=== PATIENT | male | born 1940 | race Caucasian/White ===

== ENCOUNTER 2016-08-04 04:10 | Inpatient (IN) ==
[2016-07-28 12:53] LABS: MANUAL DIFF NEEDED? NO
[2016-07-28 12:53] LABS: URINE MICRO REVIEW NEEDED? NO; URINE SOURCE CLEAN CATCH
--- NOTE | 2016-07-28 13:04 | EKG Report ---
Test Performed on : 07/28/2016 12:26:50 PM Test Reason : PAT Blood Pressure : / mmHG Vent. Rate : 085 BPM Atrial Rate : 085 BPM P-R Int : 226 ms QRS Dur : 096 ms QT Int : 368 ms P-R-T Axes : 044 032 088 degrees QTc Int : 437 ms Atrial-paced rhythm with prolonged AV conduction Nonspecific T wave abnormality Abnormal ECG No previous ECGs available Confirmed by Rock RAVI, Jaya Ramires ([id number]) on 07/30/2016 9:12:54 AM
[2016-07-28 13:33] LABS: BILIRUBIN URINE NEGATIVE (NEGATIVE); BLOOD URINE NEGATIVE (NEGATIVE); COLOR YELLOW; GLUCOSE URINE NEGATIVE (NEGATIVE); LEUKOCYTES URINE NEGATIVE (NEGATIVE); NITRITE URINE NEGATIVE (NEGATIVE); PROTEIN URINE NEGATIVE (NEGATIVE); SP GRAVITY URINE 1.017; TURBIDITY URINE CLEAR (CLEAR); UROBILINOGEN URINE NORMAL (NORMAL)
[2016-07-28 13:33] LABS: BASO% 0.4 % (0.0-0.8); EOS# 0.11 X1000 (0.0-0.7); EOS% 1.1 % (0.0-10.0); HEMATOCRIT 41.3 % (42.0-52.0); HEMOGLOBIN 13.7 g/dL (14.0-18.0); IMM GRAN# 0.07 X1000 (0.0-0.04); IMM GRAN% 0.7 % (0.0-0.5); LYMPH# 2.57 X1000 (1.2-3.4); LYMPH% 26.5 % (20.5-51.1); MCH 32.5 PG (27-31); MCHC 33.2 g/dL (33-37); MCV 97.9 FL (81-99); MONO# 0.97 X1000 (0.11-0.59); MPV 10.5 FL (7.4-10.4); NEUT% 61.3 % (42.2-75.2); PLT 195 X1000 (130-400); RBC 4.22 XMIL (4.7-6.1)
[2016-07-28 13:36] LABS: UR EPITHELIAL CELLS <10 /HPF (<10); URINE BACTERIA NEGATIVE /HPF; URINE RBC <10 /HPF (<10); URINE WBC <10 /HPF (<10)
[2016-07-28 13:40] LABS: INR 0.98; PROTIME 10.3 Seconds (9.2-11.7); PTT 32.9 Seconds (22.0-36.0)
[2016-07-28 14:01] LABS: AGAP 11; BUN 19 mg/dL (8-22); CALCIUM 9.3 mg/dL (8.8-10.2); CHLORIDE 98 mmol/L (98-107); COSMO 281; POTASSIUM 4.4 mmol/L (3.5-5.1); SODIUM 137 mmol/L (136-145); TCO2 28 mmol/L (25-35)
[2016-08-04] MEDS ORDERED: LYRICA ONE (05:56)
[2016-08-04] MEDS ORDERED: REGLAN ONE (05:56)
[2016-08-04] MEDS ORDERED: PEPCID ONE (05:56)
[2016-08-04] MEDS ORDERED: KEFZOL 2 GM/D5W 2 GM/50 ML IVPB ONE (05:57)
[2016-08-04] MEDS ORDERED: CELEBREX ONE (05:57)
[2016-08-04] MEDS ORDERED: LR 1,000 ML ONE (05:57)
[2016-08-04] MEDS ORDERED: COLACE ONE (05:58)
[2016-08-04] MEDS ORDERED: TORADOL ONE (06:42)
[2016-08-04] MEDS ORDERED: MARCAINE 0.25% PF/EPI 1:200,000 ONE (06:42)
[2016-08-04] MEDS ORDERED: NEOSPORIN G.U. IRRIGANT ONE (06:43)
[2016-08-04] MEDS ORDERED: XYLOCAINE-MPF 2% ONE (06:43)
[2016-08-04] MEDS ORDERED: SODIUM CHLORIDE 0.9% ONE (06:43)
[2016-08-04] MEDS ORDERED: CYKLOKAPRON 1,000 MG/NS 1,000 MG/100 ML IVPB ONE (06:43)
[2016-08-04] MEDS ORDERED: EXPAREL 1.3% ONE (06:43)
[2016-08-04] MEDS ORDERED: ROBINUL ONE (06:50)
[2016-08-04] MEDS ORDERED: NEO-SYNEPHRINE ONE (07:01)
[2016-08-04] MEDS ORDERED: OFIRMEV 1000 MG/ISOTONIC SOLN 1,000 MG/100 ML BOTTLE ONE (08:08)
[2016-08-04] MEDS ORDERED: DECADRON ONE (08:30)
[2016-08-04 08:38] LABS: URINE MICRO REVIEW NEEDED? NO; URINE SOURCE CATH
[2016-08-04 08:44] LABS: BILIRUBIN URINE NEGATIVE (NEGATIVE); BLOOD URINE NEGATIVE (NEGATIVE); COLOR YELLOW; GLUCOSE URINE NEGATIVE (NEGATIVE); LEUKOCYTES URINE NEGATIVE (NEGATIVE); NITRITE URINE NEGATIVE (NEGATIVE); PH URINE 5.5; PROTEIN URINE TRACE mg/dL (NEGATIVE); SP GRAVITY URINE 1.028; TURBIDITY URINE CLEAR (CLEAR); UR EPITHELIAL CELLS <10 /HPF (<10); URINE BACTERIA NEGATIVE /HPF; URINE RBC <10 /HPF (<10); URINE WBC <10 /HPF (<10); UROBILINOGEN URINE NORMAL (NORMAL)
[2016-08-04] MEDS ORDERED: VERSED ONE (10:24)
[2016-08-04] MEDS ORDERED: DIPRIVAN 1% ONE ×2 (10:25→10:57)
[2016-08-04] MEDS ORDERED: FENTANYL ONE (10:57)
[2016-08-04] MEDS ORDERED: NS 1,000 ML ONE (10:58)
[2016-08-04] MEDS ORDERED: OXY IR PO PRN (11:50)
[2016-08-04] MEDS ORDERED: MORPHINE IV PRN (11:50)
[2016-08-04] MEDS ORDERED: ZOFRAN IV PRN (11:50)
[2016-08-04] MEDS ORDERED: MILK OF MAGNESIA PO PRN (11:51)
[2016-08-04] MEDS ORDERED: AMBIEN PO PRN (11:51)
[2016-08-04] MEDS ORDERED: CYKLOKAPRON 1,000 MG in NS 100 ML IV ONE (14:00)
[2016-08-04] MEDS: ULTRAM PO SCH ×3 (14:14→23:56)
[2016-08-04] MEDS: TYLENOL PO SCH ×2 (14:21→20:18)
[2016-08-04] MEDS: NS 1,000 ML IV SCH (14:22)
--- NOTE | 2016-08-04 15:39 | OPERATIVE NOTE ---
PROCEDURE DATE: 08/04/2016 PREOPERATIVE DIAGNOSIS: Right hip degenerative joint disease. POSTOPERATIVE DIAGNOSIS: Right hip degenerative joint disease. PROCEDURE PERFORMED: Right anterior total hip arthroplasty using a [employer] orthopedic size 12 femoral stem, a +0 36 mm head, a 58 mm hemispherical shell, and 36 mm acetabular inside diameter liner. ANESTHESIA: General. SURGEON: Dr. Nato Delgadillo. VULNERABILITY ASSESSMENT ANALYST: Janet. COMPLICATIONS: None. BLOOD LOSS: Minimal. DRAINS: Hemovac x1. DESCRIPTION OF PROCEDURE: The patient brought to operative suite and placed in supine position. After successful administration of general anesthesia, the patient was placed on the OSI table in the usual position for right hip. The right hip was then prepped and draped in the usual sterile fashion. A longitudinal incision was made beginning 2 cm distal and 2 cm lateral to the anterior superior iliac spine and extended slightly laterally 8 cm. It was dissected sharply through skin and subcutaneous tissue, down to the tensor fascia. The tensor fascia was incised and dissected bluntly down to deep tensor fascia. The deep tensor fascia was incised. The circumflex vessels were electrocauterized. The rectus was elevated off the capsule exposing the anterior capsule. A T-capsulotomy was performed, exposing the femoral neck. A femoral neck cut was made with oscillating saw. The femoral head was removed with the power corkscrew. The labrum was resected. The acetabulum was serially reamed to a 58 to accept a 58 cup. A 58 cup was then driven into place in the proper amount inclination and anteversion. Then the liner was locked onto the cup. Attention was directed to the femur. It was externally rotated, extended, adducted, and elevated out of the wound with the hook on the OSI bed. The lateral neck was rongeured. The canal was serially broached to a size 12. A size 12 high offset 0 neck length was trialed and found be excellent leg length, offset, and stability of the hip. The trial was removed. Definitive stem was seated on the femur, and the head was seated on the Ibanez taper and the hip was reduced. Hip was again copiously irrigated and dried, being certain all bone debris was removed. X-rays showed it again to be in excellent position. The hip was copiously infiltrated with Exparel, including posterior capsule, anterior capsule, anterior musculature, and subcutaneous tissue and 0 V-Loc was used to close the anterior capsule and a drain was placed deep to the tensor fascia and buried around the stem neck, and then the tensor fascia was closed with running 0 V-Loc as well. Skin edge approximated with 2-0 Vicryl. Skin was closed with 4-0 Monocryl and then Prineo. The patient tolerated the procedure well without complication. At the end the procedure, all counts were correct. The patient was transferred to the recovery room in stable condition. cc: Nato Delgadillo MD
[2016-08-04] MEDS: KEFZOL 2 GM/D5W 2 GM/50 ML IVPB IV SCH ×2 (16:31→23:01)
[2016-08-04] MEDS: PERIDEX MT SCH (20:18)
[2016-08-04] MEDS: LYRICA PO SCH (20:18)
[2016-08-04] MEDS: COLACE PO SCH (20:18)
[2016-08-05] MEDS: TYLENOL PO SCH ×2 (02:34→08:55)
[2016-08-05] MEDS: NS 1,000 ML IV SCH ×2 (05:26→05:27)
[2016-08-05] MEDS: ULTRAM PO SCH (05:26)
[2016-08-05] MEDS ORDERED: XARELTO PO SCH (06:00)
[2016-08-05 06:12] LABS: HEMATOCRIT 31.8 % (42.0-52.0); HEMOGLOBIN 10.6 g/dL (14.0-18.0)
[2016-08-05 06:27] LABS: CALCIUM 8.2 mg/dL (8.8-10.2); POTASSIUM 4.8 mmol/L (3.5-5.1)
[2016-08-05 07:57] VITALS: BP 121/51
[2016-08-05] MEDS: LYRICA PO SCH (08:55)
[2016-08-05] MEDS: COLACE PO SCH (08:55)
[2016-08-05] MEDS: PERIDEX MT SCH (08:56)
[2016-08-05] MEDS ORDERED: CELEBREX PO SCH (09:00)
[2016-08-05] MEDS ORDERED: FOLIC ACID PO SCH (09:00)
[2016-08-05] MEDS ORDERED: PEPCID PO SCH (09:00)
[2016-08-05] MEDS ORDERED: JANUVIA PO SCH (09:00)
[2016-08-05] MEDS ORDERED: COZAAR PO SCH (09:00)
[2016-08-05] MEDS ORDERED: DECADRON IV ONE (09:00)
[2016-08-05] MEDS ORDERED: GLUCOTROL XL PO SCH (09:00)
[2016-08-05] MEDS ORDERED: LOFIBRA PO SCH (09:00)
--- NOTE | 2016-08-05 15:08 | DISCHARGE SUMMARY ---
ADMISSION DATE: 08/04/2016 DISCHARGE DATE: 08/05/2016 DISCHARGE DIAGNOSIS: Right hip degenerative joint disease status post right total hip arthroplasty. DISCHARGE MEDICATIONS: See discharge medication list. DISPOSITION: The patient is discharged home with home health. DISCHARGE INSTRUCTIONS: Instructions for total hip arthroplasty protocol, instructed to return to see Dr. Delgadillo next Tuesday. HOSPITAL COURSE: On the day of admission, patient underwent a left total hip arthroplasty. His postoperative course was unremarkable. At discharge, he is afebrile and tolerating a regular diet. His hemoglobin is 10.3, and his hematocrit is 31.8. He had 340 mL of drainage from his Hemovac. He walked 3 feet with physical therapy yesterday. We will have him work with physical therapy again this morning before he is discharged home in stable condition with home health. Dictated by BRETT Marlow for Nato Delgadillo MD cc: BRETT Marlow MD
[2016-08-07] MEDS ORDERED: METHOTREXATE PO SCH (09:00)
== END 2016-08-05 11:52 | disposition home health service (06) ==
LOC: SURHOLD 04:10 → 4N 08:20
PROVIDERS: ADMIT Orthopaedic Surgery; ATTEND Orthopaedic Surgery